=== PATIENT | male | born 1970 | race Caucasian/White ===

== ENCOUNTER 2016-10-31 10:29 | Emergency (ER) | payer SELFPAY ==
[2016-10-31 10:42] VITALS: BP 125/80; BMI 28.5
--- NOTE | 2016-10-31 11:04 | DR.GENAD ---
HPI - PCP Primary Care Physician: nfd - Complaint/Symptoms Chief Complaint Doctors Comments: Patient had a carbuncle on the scrotum for several days, now it has ruputered. Chief Complaint:: patient c/o cyst on scrotum that is painful and draining - Source History Provided: Patient - Mode of Arrival Mode of Arrival: Ambulatory - Timing Onset of Chief Complaint: 10/28/16 PMH - PMH Past Medical History: Yes Past Medical History: Anxiety, Depression, Diabetes Past Surgical History: Yes Surgical History: Abdominal Surgery, Appendectomy, Cholecystectomy - Family History History of Family Medical Conditions: No - Social History Does patient currently use any type of tobacco product: No Have you used tobacco products in the last 12 months: No Type of Tobacco Use: None Does any household member use tobacco: No Alcohol Use: None Do you use any recreational Drugs:: Yes (marijuana) Lives With: Family Lives Where: Home - infectious screening In the last 2 months have you had wt loss of >10#?: NO Have you had fever, night sweats or hemotysis?: No Have you traveled outside the country in the last 6 months?: No Isolation: Standard ROS - Review of Systems Constitutional: No Symptoms Reported Eyes: No Symptoms Reported ENTM: No Symptoms Reported Respiratoy: No Symptoms Reported Cardiovascular: No Symptoms Reported Gastrointestinal/Abdominal: No Symptoms Reported Genitourinary: Other (carbuncle of scrotum) Neurological: No Symptoms Reported Musculoskeletal: No Symptoms Reported, Elbow Integumentary: No Symptoms Reported Hematologic/Lymphatic: No Symptoms Reported Endocrine: No Symptoms Reported Psychiatric: No Symptoms Reported All Other Systems: Reviewed and Negative PE - Vital Signs Vitals: Temperature 98.1 F Pulse Rate 94 Respiratory Rate 16 Blood Pressure 125/80 O2 Sat by Pulse Oximetry 98 - General General Appearance: Alert, In No Apparent Distress - Head Head Exam: Normal Inspection, Atraumatic - Eyes Eye exam: Normal Appearance, PERRL, EOMI - Neck Neck Exam: Normal Inspection - Chest Chest Inspection: Normal Inspection - Respiratory Respiratory Exam: Normal Lung Sounds Bilat Respiratory Exam: Bilateral Clear to Auscultation - Cardiovascular Cardiovascular Exam: Regular Rate, Normal Rhythm - Abdominal Exam Abdominal Exam: Normal Inspection Abdominal Tenderness: negative: RUQ, RLQ, LUQ, LLQ, Epigastrium, Suprapubic, Diffuse, Mild, Moderate, Severe, Other - Extremities Extremities Exam: Normal Inspection, Full ROM - Back Back Exam: negative: Normal Inspection, Full ROM, Tenderness, (R) CVA Tenderness , (L) CVA Tenderness, Muscle Spasm, Paraspinal Tenderness, Vertebral Tenderness , Rashes, (R) Sciatic Notch Tenderness, (L) Sciatic Notch Tendern, (R) Straight Leg Raise, (L) Straight Leg Raise, Other - Neurologic Neurological Exam: Alert, Oriented X3, CN II-XII Intact - Psychiatric Psychiatric Exam: Normal Affect, Normal Mood - Skin Skin Exam: Warm, Dry, Intact, Erythema (base of carbuncle of scrotum) - Diagnosis Discharge Problem: Carbuncle, scrotum - Discharge Plan Condition: Stable - Follow ups/Referrals Follow ups/Referrals: NFD,None [Primary Care Provider] - 3 days - Instructions
[2016-10-31] MEDS ORDERED: ROCEPHIN VIAL 1 GM IM ONE (11:07)
[2016-10-31] MEDS ORDERED: ROCEPHIN VIAL 1 GM ONE (11:23)
== END 2016-10-31 11:46 | disposition home or self-care (01) ==
LOC: ER 10:29
DX: L02.93 Carbuncle, unspecified (principal)
CPT/HCPCS: 96372; 99282; J0696

== ENCOUNTER 2017-05-20 01:09 | Emergency (ER) | payer SELFPAY ==
[2017-05-20] MEDS ORDERED: NARCAN INJ ONE (01:18)
[2017-05-20 01:21] VITALS: BMI 26.4
[2017-05-20] MEDS ORDERED: NS 1000 ML 1,000 ML IV ONE (01:24)
[2017-05-20] MEDS ORDERED: NARCAN INJ IVP ONE (01:24)
[2017-05-20] MEDS ORDERED: NS 1000 ML 1,000 ML ONE (01:24)
--- NOTE | 2017-05-20 01:42 | DR.GENAD ---
HPI - PCP Primary Care Physician: nfd - HPI Comment HPI Comment: several abdominal surgery previously and have umbilical hernia. no fever or dysuria. - Complaint/Symptoms Chief Complaint Doctors Comments: abdominal pain wiith nausea. worse since tonight. took 3 percocet from friend for pain. deep sleeping since. gace narcan and patient alert and answering questions. Chief Complaint:: pt c/o abd pain for a few days pt states" i been picking up some stuff and i don't know if i hurt my stomach or what" Self Treatment fo Chief Complaint: pt took 3 percocet's his friend gave him pt hard to keep awake to answer questions - Nurses notes reviewed Nurses Notes Review: Yes - Source History Provided: Patient - Mode of Arrival Mode of Arrival: EMS - Timing Onset of Chief Complaint: 05/18/17 Came on: Suddenly - Duration Duration: Constant Duration: Days - Severity Severity: Moderate PMH - PMH Past Medical History: Yes Past Medical History: Anxiety, Depression Past Medical History Comment: chronic back pain hep c Past Surgical History: Yes Surgical History: Abdominal Surgery, Appendectomy, Cholecystectomy Past Surgical History Comment: hernia repair - Family History History of Family Medical Conditions: No - Social History Alcohol Use: None Do you use any recreational Drugs:: No Lives With: Family Lives Where: Home - infectious screening In the last 2 months have you had wt loss of >10#?: NO Have you had fever, night sweats or hemotysis?: No Have you traveled outside the country in the last 6 months?: No Isolation: Standard ROS - Review of Systems Constitutional: No Symptoms Reported Eyes: No Symptoms Reported ENTM: No Symptoms Reported Respiratoy: No Symptoms Reported Cardiovascular: No Symptoms Reported Gastrointestinal/Abdominal: Abdominal Pain, Nausea. negative: Diarrhea, Vomiting Genitourinary: No Symptoms Reported. negative: Dysuria, Frequency, Hematuria Neurological: No Symptoms Reported Musculoskeletal: No Symptoms Reported Integumentary: No Symptoms Reported Hematologic/Lymphatic: No Symptoms Reported Endocrine: No Symptoms Reported All Other Systems: Reviewed and Negative PE - Vital Signs Vitals: Temperature 97.6 F Pulse Rate [Left Brachial] 73 Pulse Rate 89 Respiratory Rate 18 Blood Pressure [Left Arm] 116/68 Blood Pressure 152/93 O2 Sat by Pulse Oximetry 100 - General Limitations: No Limitations General Appearance: Alert - Head Head Exam: Normal Inspection - Eyes Eye exam: Normal Appearance - ENT ENT Exam: Normal External Ear Exam External Ear Exam: Normal External Inspection TM/Canal Exam: Bilateral Normal Nose Exam: Normal Nose Exam Mouth Exam: Normal Inspection Throat Exam: Normal Inspection - Neck Neck Exam: Normal Inspection - Chest Chest Inspection: Symmetric Chest Wall Rise - Respiratory Respiratory Exam: Normal Lung Sounds Bilat Respiratory Exam: Bilateral Clear to Auscultation - Cardiovascular Cardiovascular Exam: Regular Rate, Normal Rhythm, Normal Heart Sounds - Abdominal Exam Abdominal Exam: Normal Bowel Sounds, Soft, Tenderness Abdominal Tenderness: Diffuse, Moderate - Extremities Extremities Exam: Normal Inspection - Back Back Exam: Normal Inspection - Neurologic Neurological Exam: Alert, Oriented X3 - Psychiatric Psychiatric Exam: Flat Affect, Other (SLEEPY) - Skin Skin Exam: Normal Color MDM - Differential Diagnosis Differential Diagnosis: abdominal pain, bowel obstruction, uti, kidney stone, diverticulitis Course - Treatment Treatment: see orders. - Education/Counseling Education/Counseling: Patient, Education Educated On: Diagnosis, Needs for Follow Up ROR - Labs Reviewed Laboratory Results Reviewed?: Yes Result Diagrams: 05/20/17 01:50 05/20/17 04:45 Laboratory: WBC 6.8 X10^3/uL (3.6-10.0) 05/20/17 01:50 RBC 3.93 X10^6/uL (4.7-6.0) L 05/20/17 01:50 Hgb 12.2 g/dL (13.5-18.0) L 05/20/17 01:50 Hct 34.5 % (42.0-54.0) L 05/20/17 01:50 MCV 87.7 fL (80.0-100.0) 05/20/17 01:50 MCH 30.9 pg (27.0-34.0) 05/20/17 01:50 MCHC 35.3 g/dL (33.0-35.0) H 05/20/17 01:50 RDW 12.3 % (11.6-16.5) 05/20/17 01:50 Plt Count 192 X10^3/uL (150.0-450.0) 05/20/17 01:50 MPV 9.1 fL (7.4-11.0) 05/20/17 01:50 Neut % 46.3 % (42.0-75.0) 05/20/17 01:50 Lymph % 37.7 % (21.0-51.0) 05/20/17 01:50 Edmunds % 10.9 % (0.0-13.0) 05/20/17 01:50 Eos % 4.2 % (0.9-2.9) H 05/20/17 01:50 Baso % 0.9 % (0.2-1.0) 05/20/17 01:50 Neut # 3.1 x10^3/uL (2.2-4.8) 05/20/17 01:50 Lymph # 2.6 X10^3/uL (1.3-2.9) 05/20/17 01:50 Edmunds # 0.7 x10^3/uL (0.3-0.8) 05/20/17 01:50 Eos # 0.3 x10^3/uL (0.0-0.2) H 05/20/17 01:50 Baso # 0.1 X10^3/uL (0.0-0.1) 05/20/17 01:50 Absolute Nucleated RBC 0.0 /100WBC 05/20/17 01:50 Sodium 142 mmol/L (136-145) 05/20/17 01:50 Corrected Sodium TNP 05/20/17 01:50 Potassium 3.6 mmol/L (3.5-5.1) 05/20/17 04:45 Chloride 106 mmol/L (98-107) 05/20/17 01:50 Carbon Dioxide 24.9 mmol/L (21-32) 05/20/17 01:50 BUN 24 mg/dL (7-18) H 05/20/17 01:50 Creatinine 1.00 mg/dL (0.70-1.30) 05/20/17 01:50 Est GFR (MDRD) Af Amer > 60 (>60) 05/20/17 01:50 Est GFR (MDRD) Non-Af > 60 (>60) 05/20/17 01:50 Glucose 104 mg/dL (65-99) H 05/20/17 01:50 Calcium 8.9 mg/dL (8.5-10.1) 05/20/17 01:50 Corrected Calcium TNP 05/20/17 01:50 Total Bilirubin 0.30 mg/dL (0.2-1.0) 05/20/17 01:50 AST 42 Units/L (15-37) H 05/20/17 01:50 ALT 60 Units/L (12-78) 05/20/17 01:50 Alkaline Phosphatase 89 Units/L (46-116) 05/20/17 01:50 Total Protein 6.7 g/dL (6.4-8.2) 05/20/17 01:50 Albumin 3.6 g/dL (3.4-5.0) 05/20/17 01:50 Globulin 3.1 g/dL (2.5-4.5) 05/20/17 01:50 Albumin/Globulin Ratio 1.2 Ratio (1.1-2.1) 05/20/17 01:50 Amylase 19 Units/L (25-115) L 05/20/17 01:50 Lipase 101 Units/L (73-393) 05/20/17 01:50 - XRAY XRAY Interpreted by: Radiologist XRAY Findings: report discuss with patient. - Diagnosis Discharge Problem: Hypokalemia Abdominal pain Qualifiers: Abdominal location: generalized Qualified Code(s): R10.84 - Generalized abdominal pain - Discharge Plan Disposition: HOME, SELF-CARE Condition: Stable Prescriptions: Ondansetron HCl [Zofran Tab 4 mg] 4 mg PO Q8H PRN #12 tab PRN Reason: Nausea/Vomiting Ranitidine HCl [ZANTAC TAB 150 MG *] 150 mg PO BID #60 tab - Follow ups/Referrals Follow ups/Referrals: NFD,None [Primary Care Provider] - 1 day JOEL GOMEZ [STAFF PHYSICIAN] - 3 days - Instructions Instructions: Hypokalemia, Abdominal Pain, Adult, [id number], Smoking Cessation, Tips for Success Additional Instructions: RETURN TO ED IF WORSE.
[2017-05-20 02:05] LABS: BASOPHILS # (AUTO) 0.1 X10^3/uL (0.0-0.1); BASOPHILS % (AUTO) 0.9 % (0.2-1.0); EOSINOPHILS # (AUTO) 0.3 x10^3/uL (0.0-0.2); EOSINOPHILS % (AUTO) 4.2 % (0.9-2.9); HEMATOCRIT 34.5 % (42.0-54.0); HEMOGLOBIN 12.2 g/dL (13.5-18.0); LYMPHOCYTES # (AUTO) 2.6 X10^3/uL (1.3-2.9); LYMPHOCYTES % (AUTO) 37.7 % (21.0-51.0); MEAN CORPUSCULAR HEMOGLOBIN 30.9 pg (27.0-34.0); MEAN CORPUSCULAR HGB CONC 35.3 g/dL (33.0-35.0); MEAN CORPUSCULAR VOLUME 87.7 fL (80.0-100.0); MEAN PLATELET VOLUME 9.1 fL (7.4-11.0); MONOCYTES # (AUTO) 0.7 x10^3/uL (0.3-0.8); MONOCYTES % (AUTO) 10.9 % (0.0-13.0); NEUTROPHILS # (AUTO) 3.1 x10^3/uL (2.2-4.8); NEUTROPHILS % (AUTO) 46.3 % (42.0-75.0); PLATELET COUNT 192 X10^3/uL (150.0-450.0); RED BLOOD COUNT 3.93 X10^6/uL (4.7-6.0); RED CELL DISTRIBUTION WIDTH 12.3 % (11.6-16.5); WHITE BLOOD COUNT 6.8 X10^3/uL (3.6-10.0)
[2017-05-20 02:07] LABS: BLOOD UREA NITROGEN 24 mg/dL (7-18); CALCIUM 8.9 mg/dL (8.5-10.1); CARBON DIOXIDE 24.9 mmol/L (21-32); CHLORIDE 106 mmol/L (98-107); SODIUM 142 mmol/L (136-145); eGFR BLACK RACES > 60 (>60); eGFR NON BLACK RACES > 60 (>60)
[2017-05-20 02:11] LABS: ALANINE AMINOTRANSFERASE 60 Units/L (12-78); ALBUMIN 3.6 g/dL (3.4-5.0); ALKALINE PHOSPHATASE 89 Units/L (46-116); AMYLASE 19 Units/L (25-115); ASPARTATE AMINO TRANSFERASE 42 Units/L (15-37); LIPASE 101 Units/L (73-393); TOTAL PROTEIN 6.7 g/dL (6.4-8.2)
[2017-05-20] MEDS ORDERED: K-LYTE EFFERVESCENT PO ONE (02:16)
[2017-05-20] MEDS ORDERED: K-LYTE EFFERVESCENT ONE (02:18)
--- NOTE | 2017-05-20 03:14 | CT ---
CT abdomen and pelvis without contrast Indication: Abdominal pain for 3 days Technique: Helical images through the abdomen and pelvis without contrast. Coronal and sagittal refor mats provided. Findings: Limited images through the lower chest show no acute abnormality. Review of bone windows sh ows no destructive osseous lesion. Spine degenerative change noted. Postsurgical changes in the lumbar spine noted Abdomen: The gallbladder is absent. Within the limits of a noncontrast study, the spleen, liver, panc reas, adrenal glands, stomach and small bowel appear normal. Umbilical hernia noted containing fat an d a nonobstructed loop of bowel. The appendix is not convincingly demonstrated. No acute colonic abno rmalities seen. Vascular plaque noted. The kidneys are normal without hydroureteronephrosis. Pelvis: The urinary bladder and rectum are normal. Prostate gland is normal. Impression: 1. No acute abnormality seen, within the limits of a noncontrast study. 2. Fat containing umbilical hernia. Correlate clinically with pain here. 3. Vascular plaque and other findings as above Reported By:
[2017-05-20 05:35] VITALS: BP 116/68
== END 2017-05-20 05:36 | disposition home or self-care (01) ==
LOC: ER 01:09
DX: E87.6 Hypokalemia (principal); R10.84 Generalized abdominal pain
CPT/HCPCS: 36415; 74176; 80053; 82150; 83690; 84132; 85025; 96365; 96374; 99283; A4222; J2310